=== PATIENT | male | born 1955 | race Caucasian/White ===

== ENCOUNTER 2021-05-03 11:43 | Day surgery (SDC) | payer OTHER, SELFPAY ==
[2021-04-27 09:13] VITALS: BMI 47.2
--- NOTE | 2021-05-02 13:32 | HO.ANESPROP2 ---
Documented by User: Pippa Miles NP 05/02/21 13:33 HPI - Anesthesia Eval Consult details Narrative: 65yo M for Colonoscopy [facility] Past Medical History Medical History Elevated cholesterol Obesity DEBBIE on CPAP Surgical History Surgical History History of shoulder surgery History of tonsillectomy Hx of colonoscopy Social History Social History Patient Tobacco Use Status: Never used Tobacco Are you DNR?: No Advance Directives: No Advance Directives Information Provided: No Advance Directives on File: No Recently lost weight without trying: No Eating poorly because of decreased appetite: No Nutrition Risks: No Nutritional Risk Meds Allergies Allergy/AdvReac Type Severity Reaction Status Date / Time No Known Allergies Allergy Unverified 04/27/21 09:11 [No Known Allergies*] Home Medications Medication Instructions Recorded Confirmed Last Taken Type ibuprofen 200 mg tablet 400 mg PO Q8H PRN 04/27/21 04/27/21 Unknown History simvastatin 20 mg tablet 20 mg PO QPM 04/27/21 04/27/21 Unknown History Exam Exam Date and Time: May 02, 2021 1332 Height,Weight and Vital Signs: Height 6 ft 5 in Weight 180.53 kg Assessment and Plan Assessment Anesthesia Assessment: Chart Reviewed Documented by User: Kandace Moses MD 05/03/21 13:04 [facility] Past Medical History Medical History Elevated cholesterol Obesity DEBBIE on CPAP Surgical History Surgical History History of shoulder surgery History of tonsillectomy Hx of colonoscopy History of Problems with Anesthesia: No Social History Social History Patient Tobacco Use Status: Never used Tobacco Are you DNR?: No Advance Directives: No Advance Directives Information Provided: No Advance Directives on File: No Recently lost weight without trying: No Eating poorly because of decreased appetite: No Nutrition Risks: No Nutritional Risk Meds Allergies Allergy/AdvReac Type Severity Reaction Status Date / Time No Known Allergies Allergy Unverified 04/27/21 09:11 [No Known Allergies*] Home Medications Medication Instructions Recorded Confirmed Last Taken Type ibuprofen 200 mg tablet 400 mg PO Q8H PRN 04/27/21 04/27/21 Unknown History simvastatin 20 mg tablet 20 mg PO QPM 04/27/21 04/27/21 Unknown History Exam Airway Mallampati Class: III (Full neck) TM Dist: >3cm Neck ROM: Full Loose/Missing/Broken Teeth: No Heart: RRR Lungs: CTA Assessment and Plan Assessment Anesthesia Assessment: Anesthesia Plan Discussed Final Anesthetic Review History of Problems with Anesthesia: No NPO: Yes ASA Class: III Final Preanesthetic Review: Meds/Allgs Chart Reviewed, Consent Obtained/Reviewed and Anes Risks/Benef Reviewed Patient Risk: Intermediate Procedure Risk: Low Anesthetic Plan Anesthetic Plan: MAC: Disposition: Standard PACU
[2021-05-03 12:38] VITALS: BP 119/68; PULSE 67; RESP 18; TEMP 36.6; O2SAT 97
[2021-05-03] MEDS: Lactated Ringers 1,000 ML 100 ML IVCONT (12:48)
--- NOTE | 2021-05-03 13:02 | MHC.SHP ---
Pre-Procedural Eval Section A Date of Service: 05/03/21 The patient is an INPATIENT: No Changes since office visit: No Cold of Flu in the past 2 weeks, No New Medical Problems, No Changes in Medication and No Patient answered all questions The History & Physical has been completed within 30 days and I have reviewed it.: Yes Section B Chief Complaint: screening,hx of colonic polyps Allergies: Allergies Allergy/AdvReac Type Severity Reaction Status Date / Time No Known Allergies Allergy Unverified 04/27/21 09:11 [No Known Allergies*] Plan I have reviewed the history and physical and performed a pertinent physical examination on my patient. No changes have occurred unless specified.
[2021-05-03 14:20] VITALS: BP 109/43; PULSE 69; RESP 16; TEMP 36.1; O2SAT 94
--- NOTE | 2021-05-03 14:21 | PM.OP ---
Brief Operative Note Date of Service: 05/03/21 Pre-op diagnosis: colon polyps Post-op diagnosis: same Procedure: colonoscopy Surgeon: Geo Saxena Anesthesia: MAC Was an Lode [employer]er Blasting used for this Procedure?: No Estimated blood loss (mL): 2 Pathology: other (colon polyps) Condition: stable Disposition: PACU
[2021-05-03 14:35] VITALS: BP 105/59; PULSE 55; RESP 18; TEMP 36.1; O2SAT 98
--- NOTE | 2021-05-03 20:28 | OP_ITS ---
SURGEON: Geo Saxena MD INDICATIONS: Colon cancer screening and prior history of adenomatous colon polyps. PREOPERATIVE DIAGNOSIS: POSTOPERATIVE DIAGNOSIS: PROCEDURE PERFORMED: Colonoscopy to the right colon with snare polypectomy and biopsy. ESTIMATED BLOOD LOSS: COMPLICATIONS: ANESTHESIA: ASSISTANTS: SPECIMENS: MEDICATIONS: Monitored anesthesia care. DESCRIPTION OF PROCEDURE: History and physical performed. The risks and benefits of the procedure were explained to the patient. Informed consent was obtained. The patient was placed in the left lateral decubitus position. A digital rectal exam was performed and was found to be normal. The Olympus pediatric video colonoscope was introduced into the rectum and advanced to the right colon. The scope began to loop and could not be advanced below the ileocecal valve. The scope was removed. An adult colonoscope was inserted and advanced to the same location. Again, the scope was looping despite application of abdominal wall pressure and repositioning the patient. The scope was advanced to the proximal right colon, but could not be advanced below the ileocecal valve. Approximately, 95% of the colon was visualized and examined. Examination was performed and the scope was removed. He tolerated the procedure well and was taken to recovery area in stable condition. FINDINGS: The terminal ileum was not examined. The area below the ileocecal valve was not examined. Two polyps were identified in the cecum, both measured less than 10 mm. The first was removed with a snare and recovered with biopsy forceps. The second could not be recovered due to its location and the inability to move the scope into the cecum. In the transverse colon, was a less than 5 mm sessile polyp, which was removed with biopsy forceps. Recovery of this polyp is pending at the time of the dictation. A final polyp at 50 cm was removed with a snare. This measured approximately 6 mm. Retroflexed examination showed internal hemorrhoids. No other polyps were identified. IMPRESSION: 1. Colon polyps. 2. Incomplete examination as above. 3. Extended/difficult procedure. MD GEORGIE Ferguson/BEN / [id number] MTDD
== END 2021-05-03 15:00 | disposition home or self-care (01) ==
PROVIDERS: PCP Internal Medicine; Visit Provider Internal Medicine Gastroenterology
PROC: 0DJD8ZZ Inspection of Lower Intestinal Tract, Via Natural or Artificial Opening Endoscopic (ICD-10-PCS; CPT 45378; principal; 2021-05-03 13:00)
DX: Z12.11 Encounter for screening for malignant neoplasm of colon (principal); Z86.010 Personal history of colon polyps; D12.0 Benign neoplasm of cecum; K63.5 Polyp of colon; K64.8 Other hemorrhoids; G47.33 Obstructive sleep apnea (adult) (pediatric); E78.00 Pure hypercholesterolemia, unspecified; E66.9 Obesity, unspecified; Z68.42 Body mass index [BMI] 45.0-49.9, adult; Z79.899 Other long term (current) drug therapy
CPT/HCPCS: 45385; 45380; 88305

== ENCOUNTER 2021-11-29 11:37 | Day surgery (SDC) | payer OTHER, SELFPAY ==
[2021-11-23 13:20] VITALS: BMI 46.9
--- NOTE | 2021-11-28 09:21 | P.CONAN_ITS ---
Documented by User: Pippa Miles NP 11/28/21 09:21 HPI - Anesthesia Eval Consult details Narrative: 66yo M for Colonoscopy [facility] Past Medical History Medical History Elevated cholesterol Obesity DEBBIE on CPAP Surgical History Surgical History (Updated 11/23/21 @ 13:14 by Lacie Valles RN) History of shoulder surgery History of tonsillectomy Hx of colonoscopy History of Problems with Anesthesia: No Social History Social History Patient Tobacco Use Status: Never used Tobacco Use of substances other than those prescribed or required for medical reasons: No Are you DNR?: No Advance Directives: No Advance Directives Information Provided: Yes Recently lost weight without trying: No Nutrition Risks: No Nutritional Risk Meds Allergies Allergy/AdvReac Type Severity Reaction Status Date / Time No Known Allergies Allergy Unverified 11/23/21 13:14 [No Known Allergies*] Home Medications Medication Instructions Recorded Confirmed Last Taken Type ibuprofen 200 mg tablet 400 mg PO Q8H PRN 04/27/21 11/23/21 Unknown History simvastatin 20 mg tablet 20 mg PO QPM 04/27/21 11/23/21 Unknown History Exam Exam Date and Time: November 28, 2021 0921 Height,Weight and Vital Signs: Height 6 ft 5 in Weight 179.623 kg Assessment and Plan Assessment Anesthesia Assessment: Chart Reviewed Final Anesthetic Review History of Problems with Anesthesia: No Documented by User: Red Mcnair MD 11/29/21 17:33 [facility] Past Medical History Medical History Elevated cholesterol Obesity DEBBIE on CPAP Functional capacity: independent ambulation Family History Family history of problems with anesthesia: No Surgical History Surgical History (Updated 11/23/21 @ 13:14 by Lacie Valles RN) History of shoulder surgery History of tonsillectomy Hx of colonoscopy Social History Social History Patient Tobacco Use Status: Never used Tobacco Use of substances other than those prescribed or required for medical reasons: No Are you DNR?: No Advance Directives: No Advance Directives Information Provided: Yes Recently lost weight without trying: No Nutrition Risks: No Nutritional Risk Meds Allergies Allergy/AdvReac Type Severity Reaction Status Date / Time No Known Allergies Allergy Unverified 11/23/21 13:14 [No Known Allergies*] Home Medications Medication Instructions Recorded Confirmed Last Taken Type ibuprofen 200 mg tablet 400 mg PO Q8H PRN 04/27/21 11/23/21 Unknown History simvastatin 20 mg tablet 20 mg PO QPM 04/27/21 11/23/21 Unknown History Exam Airway Mallampati Class: II TM Dist: >3cm Neck ROM: Full Loose/Missing/Broken Teeth: Yes Heart: s1 , s2 Lungs: distant breath sounds Assessment and Plan Assessment Anesthesia Assessment: Anesthesia Plan Discussed Final Anesthetic Review Family History of Problems with Anesthesia: No NPO: Yes ASA Class: III Final Preanesthetic Review: Meds/Allgs Chart Reviewed, Consent Obtained/Reviewed and Anes Risks/Benef Reviewed Patient Risk: High Procedure Risk: Intermediate Anesthetic Plan Anesthetic Plan: MAC: Disposition: Standard PACU
[2021-11-29 12:03] VITALS: BMI 45.0
[2021-11-29 12:15] VITALS: BP 128/73; PULSE 72; RESP 16; TEMP 36.5; O2SAT 96
[2021-11-29] MEDS: Lactated Ringers 1,000 ML 100 ML IVCONT (12:27)
--- NOTE | 2021-11-29 13:00 | MHC.SHP ---
Pre-Procedural Eval Section A Date of Service: 11/29/21 The patient is an INPATIENT: No Changes since office visit: No Cold of Flu in the past 2 weeks, No New Medical Problems, No Changes in Medication and No Patient answered all questions The History & Physical has been completed within 30 days and I have reviewed it.: Yes Section B Chief Complaint: Personal history of colonic polyps Allergies: Allergies Allergy/AdvReac Type Severity Reaction Status Date / Time No Known Allergies Allergy Unverified 11/23/21 13:14 [No Known Allergies*] Plan I have reviewed the history and physical and performed a pertinent physical examination on my patient. No changes have occurred unless specified.
[2021-11-29 14:14] VITALS: BP 121/65; PULSE 72; RESP 16; TEMP 37.1; O2SAT 95
--- NOTE | 2021-11-29 14:24 | PM.OP ---
Brief Operative Note Date of Service: 11/29/21 Pre-op diagnosis: hx polyps Post-op diagnosis: same Procedure: colonoscopy Surgeon: Geo Saxena Anesthesia: MAC Was an Patient Appointment Coordinator used for this Procedure?: No Estimated blood loss (mL): 5 Pathology: other (polyps) Condition: stable Disposition: PACU
[2021-11-29 14:29] VITALS: BP 108/67; PULSE 60; RESP 18; TEMP 37.1; O2SAT 96
--- NOTE | 2021-11-30 04:48 | OP_ITS ---
SURGEON: Geo Saxena MD PREOPERATIVE DIAGNOSIS: POSTOPERATIVE DIAGNOSIS: PROCEDURE PERFORMED: ESTIMATED BLOOD LOSS: COMPLICATIONS: ANESTHESIA: ASSISTANTS: SPECIMENS: PROCEDURES: Colonoscopy to the terminal ileum with snare polypectomy, biopsy and cauterization of colon polyp. INDICATION: Personal history of colon polyps. MEDICATIONS: Monitored anesthesia care. DESCRIPTION OF PROCEDURE: History and physical was performed. The risks and benefits of the procedure were explained to the patient. Informed consent was obtained. The patient was placed in the left lateral decubitus position. A digital rectal exam was performed and was found to be normal. The Olympus video colonoscope was introduced into the rectum and advanced to the cecum without difficulty. The cecum was identified by transillumination, palpation, and identification of ileocecal valve. Examination was performed. The scope was removed. He tolerated the procedure well and was returned to the recovery area in stable condition. FINDINGS: The terminal ileum was examined and appeared normal. In the cecum near the previous large polypectomy site was a small nodular appearing area, it measured approximately 6 mm. This was biopsied and then snared. A second polyp in the cecum was also snared. This measured 6 mm as well. In the right colon were 3 polyps, 2 were snared and the third was cauterized, all were less than 10 mm. There was moderate diverticulosis of the sigmoid. The quality of the prep was good. Retroflexed examination showed moderate-sized internal hemorrhoids. IMPRESSION: Colon polyps. RECOMMENDATION: Follow up with the biopsy results. MD GEORGIE Ferguson/BEN / [id number]
== END 2021-11-29 15:27 | disposition home or self-care (01) ==
PROVIDERS: PCP Internal Medicine; Visit Provider Internal Medicine Gastroenterology
PROC: 0DJD8ZZ Inspection of Lower Intestinal Tract, Via Natural or Artificial Opening Endoscopic (ICD-10-PCS; CPT 45378; principal; 2021-11-29 13:00)
DX: Z12.11 Encounter for screening for malignant neoplasm of colon (principal); Z86.010 Personal history of colon polyps; D12.0 Benign neoplasm of cecum; K57.30 Diverticulosis of large intestine without perforation or abscess without bleeding; K64.8 Other hemorrhoids; E78.00 Pure hypercholesterolemia, unspecified; G47.33 Obstructive sleep apnea (adult) (pediatric); Z79.1 Long term (current) use of non-steroidal anti-inflammatories (NSAID); Z79.899 Other long term (current) drug therapy
CPT/HCPCS: 45385; 45380; 88305

== ENCOUNTER 2024-05-20 11:33 | Day surgery (SDC) | payer MEDICARE, SELFPAY ==
[2024-05-18 09:05] VITALS: BMI 45.3
--- NOTE | 2024-05-19 09:30 | HO.ANESPROP2 ---
Documented by User: Pippa Miles NP 05/19/24 09:35 HPI - Anesthesia Eval Consult details Narrative: 68yo M for Colonoscopy Aflutter (eliquis) s/p ablation PMFSH Past Medical History Medical History (Updated 05/18/24 @ 09:00 by Evelin Farah RN) Spinal headache Osteoarthritis Hyperlipidemia Atrial flutter Obesity DEBBIE on CPAP Elevated cholesterol Family History Family history of problems with anesthesia: No Surgical History Surgical History (Updated 05/18/24 @ 08:59 by Evelin Farah RN) History of cardiac radiofrequency ablation History of left hip replacement History of shoulder surgery Hx of colonoscopy History of tonsillectomy History of Problems with Anesthesia: No Social History Social History Patient Tobacco Use Status: Never used Tobacco Use of substances other than those prescribed or required for medical reasons: No Are you DNR?: No Advance Directives: No Advance Directives Information Provided: Yes Advance Directives on File: No Recently lost weight without trying: No Nutrition Risks: No Nutritional Risk Poor oral hygiene: No Meds Allergies Allergy/AdvReac Type Severity Reaction Status Date / Time No Known Allergies Allergy Verified 05/20/24 12:33 [No Known Allergies*] Home Medications ?Medication ?Instructions ?Recorded ?Confirmed ?Last Taken ?Type simvastatin 20 mg tablet 20 mg PO QPM 04/27/21 05/20/24 Unknown History acetaminophen 500 mg capsule 500 mg PO Q6H PRN Pain 05/18/24 05/20/24 Unknown History Exam Height,Weight and Vital Signs: Height 6 ft 5 in Weight 173.272 kg Narrative Narrative: EKG 02/2024 NSR @ 69 Echocardiogram - Complete ? 10:10:41 Summary The left ventricle is poorly visualized. Intravenous contrast injection was performed. The left ventricular size is normal. Left ventricular wall thickness is normal. There is mild discrete upper septal thickening. The LV systolic function is low normal . The left ventricular ejection fraction is 50-55 %. There are no regional wall motion abnormalities. Unable to assess diastolic function due to technical limitation . The right ventricle is poorly visualized. Doppler evaluation suggests normal RV systolic function. The inferior vena cava appears mildly dilated. Inferior vena cava inspiratory collapse is normal . No significant valvular abnormalities are identified. Comparison No prior study available for comparison. Assessment and Plan Assessment Anesthesia Assessment: Chart Reviewed Final Anesthetic Review Family History of Problems with Anesthesia: No History of Problems with Anesthesia: No Documented by User: Marisol Mitchell MD 05/20/24 13:09 PMF Past Medical History Medical History (Updated 05/18/24 @ 09:00 by Evelin Farah RN) Spinal headache Osteoarthritis Hyperlipidemia Atrial flutter Obesity DEBBIE on CPAP Elevated cholesterol Surgical History Surgical History (Updated 05/18/24 @ 08:59 by Evelin Farah RN) History of cardiac radiofrequency ablation History of left hip replacement History of shoulder surgery Hx of colonoscopy History of tonsillectomy Social History Social History Patient Tobacco Use Status: Never used Tobacco Use of substances other than those prescribed or required for medical reasons: No Are you DNR?: No Advance Directives: No Advance Directives Information Provided: Yes Advance Directives on File: No Recently lost weight without trying: No Nutrition Risks: No Nutritional Risk Poor oral hygiene: No Meds Allergies Allergy/AdvReac Type Severity Reaction Status Date / Time No Known Allergies Allergy Verified 05/20/24 12:33 [No Known Allergies*] Home Medications ?Medication ?Instructions ?Recorded ?Confirmed ?Last Taken ?Type simvastatin 20 mg tablet 20 mg PO QPM 04/27/21 05/20/24 Unknown History acetaminophen 500 mg capsule 500 mg PO Q6H PRN Pain 05/18/24 05/20/24 Unknown History Exam Airway Mallampati Class: II TM Dist: >3cm Neck ROM: Full Heart: rrr Lungs: cta Assessment and Plan Assessment Anesthesia Assessment: Anesthesia Plan Discussed Final Anesthetic Review NPO: Yes ASA Class: III Final Preanesthetic Review: No Changes in Pt Med Stat, Meds/Allgs Chart Reviewed and Consent Obtained/Reviewed Patient Risk: Intermediate Procedure Risk: Low Anesthetic Plan Anesthetic Plan: MAC: Disposition: Standard PACU
[2024-05-20 12:29] VITALS: BMI 46.3
[2024-05-20 12:49] VITALS: BP 133/89; PULSE 90; RESP 16; TEMP 36.2; O2SAT 97
[2024-05-20] MEDS: Lactated Ringers 1,000 ML 100 ML IVCONT (12:59)
--- NOTE | 2024-05-20 13:00 | MHC.SHP ---
Pre-Procedural Eval Section A - 24 Hr Update-Section A only Date of Service: 05/20/24 The patient is an INPATIENT: No Changes since office visit: No Cold of Flu in the past 2 weeks, No New Medical Problems, No Changes in Medication and No Patient answered all questions The patient has been examined within 24 hours of the surgical procedure. The History & Physical has been completed within 30 days and I have reviewed it.: Yes Section B - Complete if H&P > 30 days Chief Complaint: screening Allergies: Allergies Allergy/AdvReac Type Severity Reaction Status Date / Time No Known Allergies Allergy Verified 05/20/24 12:33 [No Known Allergies*] Plan I have reviewed the history and physical and performed a pertinent physical examination on my patient. No changes have occurred unless specified. Time Spent With Patient Time: Total time managing care of this patient today ____ minutes.
[2024-05-20 14:04] VITALS: BP 115/62; PULSE 70; RESP 16; TEMP 36.1; O2SAT 96
[2024-05-20 14:18] VITALS: BP 100/61; PULSE 70; RESP 16; O2SAT 96
--- NOTE | 2024-05-20 22:32 | OP_ITS ---
DATE OF SERVICE: 05/20/2024 SURGEON: Geo Saxena MD INDICATIONS: Colon cancer screening and prior history of flat adenomatous colon polyps, short-term followup due to recurrent polyp. PREOPERATIVE DIAGNOSIS: POSTOPERATIVE DIAGNOSIS: PROCEDURE PERFORMED: Colonoscopy to the terminal ileum. ESTIMATED BLOOD LOSS: COMPLICATIONS: ANESTHESIA: Monitored anesthesia care. ASSISTANTS: SPECIMENS: DESCRIPTION OF PROCEDURE: A history and physical was performed. The risks and benefits of the procedure were explained to the patient. Informed consent was obtained. The patient was placed in the left lateral decubitus position. A digital rectal exam was performed and was found to be normal. The Olympus video colonoscope was introduced into the rectum and advanced to the cecum. The cecum was identified by transillumination, palpation, and identification of ileocecal valve. Examination was performed. The scope was removed. He tolerated the procedure well and was returned to the recovery area in stable condition. FINDINGS: The terminal ileum was examined and appeared normal. The visualized colonic mucosa was normal. The previous polypectomy site in the cecum was identified and there appeared to be no recurrent polypoid tissue. The quality of the prep was good. There was some liquid stool coating the mucosa in the right colon and sigmoid, which was washed and suctioned. There was moderate sigmoid diverticulosis. No new polyps were identified. Retroflexed examination showed some moderate-sized internal hemorrhoids. IMPRESSION: Normal colonoscopy. RECOMMENDATION: 1. Follow up as needed. 2. Repeat colonoscopy should be considered in 5 years because of prior history of colon polyps. MD GEORGIE Ferguson/BEN / [id number]
== END 2024-05-20 15:00 | disposition home or self-care (01) ==
PROVIDERS: PCP Internal Medicine; Visit Provider Internal Medicine Gastroenterology
PROC: 0DJD8ZZ Inspection of Lower Intestinal Tract, Via Natural or Artificial Opening Endoscopic (ICD-10-PCS; CPT 45378; principal; 2024-05-20 13:00)
DX: Z12.11 Encounter for screening for malignant neoplasm of colon (principal); Z86.0101 Personal history of adenomatous and serrated colon polyps; K57.30 Diverticulosis of large intestine without perforation or abscess without bleeding; K64.8 Other hemorrhoids; I48.92 Unspecified atrial flutter; E78.5 Hyperlipidemia, unspecified; G47.33 Obstructive sleep apnea (adult) (pediatric); Z99.89 Dependence on other enabling machines and devices; Z79.899 Other long term (current) drug therapy; Z79.1 Long term (current) use of non-steroidal anti-inflammatories (NSAID); Z96.642 Presence of left artificial hip joint; Z98.890 Other specified postprocedural states
CPT/HCPCS: G0105; J2003; J2704